=== PATIENT | male | born 1980 | race Caucasian/White ===

== ENCOUNTER 2017-03-28 15:21 | Emergency (ER) | payer SELFPAY ==
[2017-03-28] MEDS ORDERED: CHLORHEXIDINE GLUCONATE 4 % 15 ML UD TOP ONE (15:26)
[2017-03-28 15:38] VITALS: BP 132/87; TEMP 97; O2SAT 97
--- NOTE | 2017-03-28 15:41 | ED.PDOC ---
History of Present Illness - General Chief Complaint: Skin/Abrasion/Tear Stated Complaint: LACERATION TO RIGHT INDEX FINGER Time Seen by Provider: 03/28/17 15:24 Source: patient - History of Present Illness Initial Comments: PT REPORTS ACCIDENTAL INJURY TO RIGHT INDEX FINGER WITH A CHOP SAW AT A CONSTRUCTION JOB SITE. Timing/Duration: this afternoon Severity: moderate Location: hands Improving Factors: nothing Worsening Factors: nothing Associated Symptoms: denies symptoms Allergies/Adverse Reactions: Allergies Penicillins Allergy (Verified 03/28/17 15:33) Review of Systems - Review of Systems Constitutional: Denies: chills, fever EENTM: Denies: ear pain, nose congestion Respiratory: Denies: cough, short of breath Cardiology: Denies: chest pain, palpitations Past Medical History (General) - Patient Medical History Hx Seizures: No Hx Stroke: No Hx Dementia: No Hx Asthma: No Hx of COPD: No Hx Cardiac Disorders: No Hx Congestive Heart Failure: No Hx Pacemaker: No Hx Hypertension: No Hx Thyroid Disease: No Hx Diabetes: No Hx Gastroesophageal Reflux: No Hx Renal Disease: No Hx Cancer: No Hx of HIV: No Hx Hepatitis C: No Hx MRSA: No - Vaccination History Hx Tetanus, Diphtheria Vaccination: Yes - WITHIN 5 YRS - Social History Hx Tobacco Use: Yes - 1/2 pack a day Hx Alcohol Use: No Hx Substance Use: No Hx Substance Use Treatment: No Hx Depression: No Family Medical History - Family History Mother Family History: No Known Physical Exam - Physical Exam General Appearance: Alert, Comfortable, No apparent distress Extremity: normal inspection Skin Exam: warm/dry, normal color Skin Problem Location: other - RIGHT HAND, 6CM LACERATION ALONG THE DORSAL ASPECT OF RIGHT INDEX FINGER, FLEXION AND EXTENTION INTACT, NO BLEEDING NOTED. Procedures - Laceration/Wound Repair Right Finger Wound's Depth, Shape: irregular Wound Explored: no foreign body removed Irrigated w/ Saline (cc's): 250 Betadine Prep?: Yes Anesthesia: 1% Lidocaine - DIGITAL BLOCK Wound Repaired With: sutures Suture Size/Type: 4:0, nylon Layer Closure?: No Sterile Dressing Applied?: Yes Splint Applied?: Yes Type of Splint Applied: FINGER Progress: PT TOLERATED PROCEDURE WELL Departure - Departure Clinical Impression: Laceration of finger Time of Disposition: 16:22 Disposition: Discharge to Home or Self Care Condition: Good Departure Forms: ED Discharge - Pt. Copy, Patient Portal Self Enrollment Instructions: DI for Laceration Repair -- Finger Referrals: Logan Foote MD [Primary Care Provider] - 1-2 Weeks Additional Instructions: RETURN TO ED OR PCP IN 7-10 DAYS FOR SUTURE REMOVAL. RETURN SOONER FOR SIGNS OF INFECTION
[2017-03-28] MEDS ORDERED: LIDOCAINE 1% 10 ML VIAL INJ ONE (15:44)
[2017-03-28] MEDS ORDERED: NEOMYCIN-BACITRACIN-POLYMYXIN 0.9 GM UD TOP ONE (16:20)
== END 2017-03-28 16:56 | disposition home or self-care (01) ==
LOC: ER 15:21
DX: S61.210A Laceration without foreign body of right index finger without damage to nail, initial encounter (principal); F17.200 Nicotine dependence, unspecified, uncomplicated; Z88.0 Allergy status to penicillin; W29.8XXA Contact with other powered hand tools and household machinery, initial encounter; Y92.69 Other specified industrial and construction area as the place of occurrence of the external cause; Y99.0 Civilian activity done for income or pay